=== PATIENT | female | born 1965 | race Two or more races ===

== ENCOUNTER 2025-06-02 09:47 | Emergency (ER) | payer OTHER ==
[~2025-06-02] VITALS: Ht 152.4 cm; Wt 90.7 kg
[2025-06-02 09:57] VITALS: BP 169/99; TEMP 98.3
[2025-06-02 10:48] VITALS: O2SAT 98
[2025-06-02] MEDS ORDERED: ACETAMINOPHEN 325 MG TABLET PO ONE (11:00)
[2025-06-02] MEDS ORDERED: BACI/NEOM/POLY B OINT PKT 1 UDPKT PACKET TP ONE (11:00)
== END 2025-06-02 10:51 | disposition home or self-care (01) ==
LOC: ER 09:56
DX: T22.112A Burn of first degree of left forearm, initial encounter (principal); Z88.7 Allergy status to serum and vaccine; X15.0XXA Contact with hot stove (kitchen), initial encounter; Y93.G3 Activity, cooking and baking; Y92.000 Kitchen of unspecified non-institutional (private) residence as the place of occurrence of the external cause; Y99.8 Other external cause status